=== PATIENT | female | born 1995 | race Two or more races ===

== ENCOUNTER 2020-08-14 19:12 | Emergency (ER) | payer OTHER ==
[~2020-08-14] VITALS: Ht 157.5 cm; Wt 49.9 kg
--- NOTE | 2020-08-14 19:20 | NUR ---
PT BIBRA C/O PAIN IN RT LEG AND RT ARM FROM SPIDER BITES. PT AAOX4 BREATHING EVENLY AND UNLABORED. UPON ASSESSMENT PT HAS RED AND IRRITATED BITES ON HER LEG AND ARM. PT SKIN IS WARM AND DRY. PT ATTACHED TO MONITOR AND POX. CALL LIGHT WITHIN REACH
--- NOTE | 2020-08-14 19:25 | NUR ---
ARCHITECTURAL DRAFTSPERSON AT BEDSIDE
[2020-08-14] MEDS: CEFTRIAXONE 1 G VIAL IM ONE (19:35)
[2020-08-14] MEDS: TDAP [DIPH/PERTUSSIS/TET] 0.5 ML VIAL IM ONE (19:35)
[2020-08-14] MEDS: LIDOCAINE 1% INJ 50 ML MDV IJ ONE (19:35)
[2020-08-14] MEDS ORDERED: TDAP [DIPH/PERTUSSIS/TET] 0.5 ML VIAL IM ONE (19:38)
[2020-08-14] MEDS ORDERED: CEFTRIAXONE 1 G VIAL ONE (19:38)
[2020-08-14] MEDS ORDERED: LIDOCAINE 1% INJ 50 ML MDV IJ ONE (19:38)
[2020-08-14] MEDS ORDERED: CEPH500C2 PO (19:51)
--- NOTE | 2020-08-14 20:11 | NUR ---
Patient discharged to home in stable condition. Written and verbal after care instructions given. Patient verbalizes understanding of instruction.Pt ambulatory with a steady gait
[2020-08-14 20:28] VITALS: BP 104/84
== END 2020-08-14 20:11 | disposition home or self-care (01) ==
LOC: ER 19:13
DX: S80.861A Insect bite (nonvenomous), right lower leg, initial encounter (principal); L03.115 Cellulitis of right lower limb; F15.10 Other stimulant abuse, uncomplicated; Z59.0 Homelessness; J45.909 Unspecified asthma, uncomplicated; Z79.899 Other long term (current) drug therapy; W57.XXXA Bitten or stung by nonvenomous insect and other nonvenomous arthropods, initial encounter; Y93.89 Activity, other specified; Y92.89 Other specified places as the place of occurrence of the external cause; Y99.8 Other external cause status
CPT/HCPCS: 90471; 90715; 96372; 99284; J0696; J3490